=== PATIENT | female | born 1960 | race Caucasian/White ===

== ENCOUNTER 2021-07-23 18:26 | Emergency (ER) | payer OTHER ==
[~2021-07-23] VITALS: Ht 160 cm; Wt 68.9 kg
[2021-07-23 18:40] VITALS: BP 168/85
[2021-07-23] MEDS ORDERED: HYDROcodone/APAP 5/325 MG 1 TAB TAB PO ONE (19:40)
[2021-07-23] MEDS ORDERED: ONDANSETRON 4 MG ODT PO ONE (19:40)
[2021-07-23] MEDS ORDERED: KETOROLAC 30 MG/ML VIAL IM ONE (19:40)
--- NOTE | 2021-07-23 20:20 | NUR ---
PT TAKEN TO CHAIR B.
[2021-07-23] MEDS ORDERED: HYDROcodone/APAP 5/325 MG 1 TAB TAB ONE (20:21)
[2021-07-23] MEDS ORDERED: IBUP-2213 PO (20:56)
[2021-07-23] MEDS ORDERED: ACET-8386 PO (20:56)
[2021-07-23] MEDS ORDERED: PROCHLORPERAZINE 5 MG TAB PO ONE (22:10)
--- NOTE | 2021-07-23 22:44 | NUR ---
PT BACK FROM CT.
[2021-07-23 23:30] VITALS: BP 135/69
--- NOTE | 2021-07-23 23:30 | NUR ---
PT REPORTS NAUSEA AND PAIN IMPROVEMENT.
== END 2021-07-23 23:30 | disposition home or self-care (01) ==
LOC: MED 18:26
DX: M54.41 Lumbago with sciatica, right side (principal); G89.29 Other chronic pain; R51.9 Headache, unspecified; E11.9 Type 2 diabetes mellitus without complications; Z79.899 Other long term (current) drug therapy
CPT/HCPCS: 70450; 96372; 99284; J1885; Q0162; Q0164